=== PATIENT | female | born 1955 | race Caucasian/White ===

== ENCOUNTER → 2023-12-12 10:24 | Outpatient (REF) | payer MEDICARE, SELFPAY | LOC: HWRAD 10:24 | PROVIDERS: ATTENDING PHYSICIAN Surgery; FAMILY PHYSICIAN Family Medicine | DX: N20.0 Calculus of kidney (principal) | CPT/HCPCS: 74018 ==

== ENCOUNTER → 2024-08-20 08:56 | Outpatient (REF) | payer MEDICARE, SELFPAY | LOC: HWRAD 08:56 | PROVIDERS: ATTENDING PHYSICIAN Surgery; FAMILY PHYSICIAN Family Medicine | DX: N20.0 Calculus of kidney (principal) | CPT/HCPCS: 74018 ==

== ENCOUNTER 2024-12-13 12:18 | Emergency (ER) | payer MEDICARE, SELFPAY ==
[2024-12-13 12:28] VITALS: BP 178/90
[2024-12-13 12:30] VITALS: BP 187/76
[2024-12-13 12:49] LABS: % Basophils 0.7 % (0-2); % Eosinophils 0.6 % (0-6); % Immature Granulocytes 0.4 % (0-0.5); % Lymphocytes 19.8 % (20.5-51.1); % Monocytes 10.6 % (1.7-9.3); % Neutrophils 67.9 % (42.2-75.2); Absolute Basophils 0.1 10^3/uL (0-0.2); Absolute Eosinophils 0.1 10^3/uL (0-0.7); Absolute Immature Granulocytes 0.1 10^3/uL (0-0.05); Absolute Lymphocytes 2.3 10^3/uL (1.2-3.4); Absolute Monocytes 1.2 10^3/uL (0.1-0.6); Absolute Neutrophils 7.9 10^3/uL (1.4-6.5); Hematocrit 49.2 % (37.0-47.0); Hemoglobin 16.3 g/dL (12.0-16.0); Mean Corp Hgb Conc. 33.1 g/dL (33.0-37.0); Mean Corpuscular Hgb 29.5 pg (27.0-31.0); Mean Corpuscular Volume 89.1 fL (81.0-99.0); Mean Platelet Volume 9.1 fL (7.4-10.4); Nucleated Red Blood Cells % 0 %; Platelet Count 273 10^3/uL (130-400); Red Blood Cell Count 5.52 10^6/uL (4.20-5.40); Red Cell Dist. Width 13.3 % (11.5-14.5); White Blood Cell Count 11.7 10^3/uL (4.8-10.8)
[2024-12-13 13:06] LABS: ALT (SGPT) 25 U/L (0-35); AST (SGOT) 22 U/L (14-36); Albumin 4.7 g/dl (3.5-5.0); Alkaline Phosphatase 62 U/L (38-126); Blood Urea Nitrogen 26 mg/dl (7-17); Calcium 9.9 mg/dl (8.4-10.2); Carbon Dioxide 28 mmol/L (22-30); Chloride 104 mmol/L (98-107); Glucose 105 mg/dl (70-99); Potassium 4.7 mmol/L (3.5-5.1); Sodium 137 mmol/L (135-145); eGFR > 60.00
[2024-12-13 13:12] LABS: Troponin I < 0.012 ng/ml
--- NOTE | 2024-12-13 14:21 | ED.GENMED ---
History of Present Illness
General
Chief Complaint: Blood Pressure Problem
Source: patient
Exam Limitations: none
Time Seen by Provider: 12/13/24 13:57
History of Present Illness
History of Present Illness:
69-year-old female otherwise healthy presents with headache diaphoresis fatigue and overall sensation of not feeling well. This started mainly today late this morning. There is no chest pain. She does admit to a significant family history of
cardiac disease. No shortness of breath. She denies rash or measurable fever however she has noted in the middle the night when she has wake up to urinate she comes back to the bathroom covered in sweat. She denies a cough. No tick bites. No
other complaints at this time.
Past History
Past History
ED Past Medical History: None
ED Past Surgical History: Other (Lithotripsy)
Phy Exam
Physical Exam
Physical Exam:
General: Well-appearing female no acute respiratory distress
HEENT: Normocephalic atraumatic
Heart: Regular rate and rhythm
Lungs: Clear no wheeze
Neurologic exam: Alert and oriented no facial asymmetry good strength to the upper and lower extremities
Course
Orders/Labs/Results
Orders:
Orders
12/13/24 12:33
Electrocardiogram (*1) Urgent
Reason for Study: Chest Pain
EKG- Treatment ONCE
12/13/24 12:38
Complete Blood Count/With Diff Urgent
Comprehensive Metabolic Panel Urgent
Lyme Progressive Urgent
Comment: ADD ON
TSH Reflex To Free T4 Urgent
Comment: ADD ON
Troponin I Urgent
12/13/24 14:16
CT Head W/o Iv Contrast Urgent
Comment:
Reason For Exam: headache
12/13/24 14:17
Add On- LAB Urgent
Tests Added?: tsh reflex to free t4, lyme progressive
12/13/24 15:14
Troponin I Urgent
Abnormal Lab Results
12/13/24
12:38
WBC 11.7 H 10^3/uL
(4.8-10.8)
RBC 5.52 H 10^6/uL
(4.20-5.40)
Hgb 16.3 H g/dL
(12.0-16.0)
Hct 49.2 H %
(37.0-47.0)
Abs Immat Gran (auto) 0.1 H 10^3/uL
(0-0.05)
Absolute Neuts (auto) 7.9 H 10^3/uL
(1.4-6.5)
Absolute Monos (auto) 1.2 H 10^3/uL
(0.1-0.6)
Lymphocytes % 19.8 L %
(20.5-51.1)
Monocytes % 10.6 H %
(1.7-9.3)
BUN 26 H mg/dl
(7-17)
Glucose 105 H mg/dl
(70-99)
12/13/24 12:38
12/13/24 12:38
Vital Signs
Initial and Last Documented VS:
Initial Vital Signs
Temp Pulse Resp BP Pulse Ox
97.9 F 64 16 178/90 99
12/13/24 12:28 12/13/24 12:28 12/13/24 12:28 12/13/24 12:28 12/13/24 12:28
Last Documented Vital Signs
Temp Pulse Resp BP Pulse Ox
97.9 F 67 18 153/77 100
12/13/24 12:28 12/13/24 12:30 12/13/24 12:30 12/13/24 15:15 12/13/24 12:30
MDM/Problems Addressed
Differential Diagnosis Includes:
Patient presented with sensation of cognitive fog headache diaphoresis. She also had elevated blood pressure. There is no associated chest pain.
Blood pressure was elevated at triage we will recheck. Consider cardiac disease versus thyroid disorder versus electrolyte abnormality. No signs of illness. Given her headache will order CT of the head
*Critical Care Note
Total Time (30-74mins, 75-104mins- exclusive of procedures): Not Applicable
Update Note
Update Note:
CT head negative repeat troponin negative. Blood pressure improved. Etiology of the patient's diaphoresis is unclear. She does have significant family history of cardiac disease. TSH is normal here.
ED Attending Note
-
Portions of this chart may have been created with voice recognition software.� Occasional wrong word or��sound alike� substitutions may have occurred due to the inherent limitations of voice recognition software.
Discharge Plan
Departure
Patient Disposition: Home (Routine Discharge)
Date of Disposition: 12/13/24
Time of Disposition: 16:40
Patient with high blood pressure during this ER visit?: No
Discharge Problem:
Elevated blood pressure reading, Diaphoresis
Instructions: Chest Pain CBC Follow Up, BLOOD PRESSURE
Prescriptions:
No Action
diazepam [Valium] 2 mg tablet
2 mg PO TID PRN (Reason: spasms) Qty: 10 0RF
ketorolac 10 mg tablet
10 mg PO TID PRN (Reason: Pain) Qty: 10 0RF
tamsulosin [Flomax] 0.4 mg capsule
0.4 mg PO DAILY Qty: 7 0RF
cefdinir 300 mg capsule
300 mg PO BID 7 Days Qty: 14 0RF
Referrals:
Von Phelps MD [Family Provider] -
Activity Restrictions/Additional Instructions:
Please return here for worsening symptoms otherwise follow-up with your family doctor or rod tape operator
Interventions
Interventions:
*Risk Screen - Suicide Last Done: 12/13/24 12:28
*General Assessment Last Done: 12/13/24 12:55
*Neglect/Abuse Screening Last Done: 12/13/24 12:28
*ED- Fall Risk Assessment Last Done: 12/13/24 12:55
*ED COVID-19 Vaccine History Last Done: 12/13/24 12:55
ED- Cardiac Assessment Last Done: 12/13/24 12:55
ED- Neurological Assessment Last Done: 12/13/24 12:55
ED- Pulmonary Assessment Last Done: 12/13/24 12:55
Discharge Date and Time
Print Language: NICARAGU[place]
[2024-12-13 15:15] VITALS: BP 153/77
[2024-12-13 15:53] LABS: TSH Reflex To Free T4 1.23 uIU/ml (0.47-4.68)
[2024-12-13 16:21] LABS: Troponin I < 0.012 ng/ml
[2024-12-15 16:14] LABS: Lyme Antibody Screen, EIA Negative (Negative)
== END 2024-12-13 16:55 | disposition home or self-care (01) ==
LOC: EMR 12:18
PROVIDERS: Physician Assistant; Student in an Organized Health Care Education/Training Program; EMERGENCY PHYSICIAN Emergency Medicine; FAMILY PHYSICIAN Family Medicine
DX: R61 Generalized hyperhidrosis (principal); R03.0 Elevated blood-pressure reading, without diagnosis of hypertension
CPT/HCPCS: 99285; 70450; 80053; 84443; 84484; 85025; 86618; 93005

== ENCOUNTER → 2024-12-30 14:36 | Outpatient (REF) | payer MEDICARE, SELFPAY | LOC: RCS 14:36 | PROVIDERS: ATTENDING PHYSICIAN Internal Medicine Cardiovascular Disease; FAMILY PHYSICIAN Family Medicine | DX: R61 Generalized hyperhidrosis (principal); R03.0 Elevated blood-pressure reading, without diagnosis of hypertension; R23.2 Flushing | CPT/HCPCS: 93306 ==

== ENCOUNTER → 2024-12-31 10:27 | Outpatient (REF) | payer MEDICARE, SELFPAY | LOC: RCS 10:27 | PROVIDERS: ATTENDING PHYSICIAN Internal Medicine Cardiovascular Disease; FAMILY PHYSICIAN Family Medicine | DX: R03.0 Elevated blood-pressure reading, without diagnosis of hypertension (principal); R23.2 Flushing; R61 Generalized hyperhidrosis; R94.31 Abnormal electrocardiogram [ECG] [EKG] | CPT/HCPCS: 93017 ==

== ENCOUNTER → 2025-01-16 07:18 | Outpatient (REF) | payer MEDICARE, SELFPAY | LOC: RCS 07:18 | PROVIDERS: ATTENDING PHYSICIAN Internal Medicine Cardiovascular Disease; FAMILY PHYSICIAN Family Medicine | DX: R94.39 Abnormal result of other cardiovascular function study (principal); R94.31 Abnormal electrocardiogram [ECG] [EKG] | CPT/HCPCS: 78452; 93017; A9500 ==